=== PATIENT | male | born 1955 | race Caucasian/White ===

== ENCOUNTER 2023-02-27 14:32 | Day surgery (SDC) | payer MEDICARE ==
[2023-02-27] MEDS ORDERED: BUPIVACAINE 0.5% VIAL IJ ONE (14:33)
[2023-02-27] MEDS ORDERED: Depo-Medrol 40 MG/ML IM ONE (14:33)
[2023-02-27] MEDS ORDERED: XYLOCAINE-MPF 1% 5ML SDV IJ ONE (14:33)
--- NOTE | 2023-02-27 17:16 | XRAY ---
Indication: Left knee injection. Intraoperative fluoroscopy provided for 15 seconds. Single digital spot image submitted for interpretation demonstrates needle tip projecting over left femur intercondylar notch. Small amount of contrast injected for needle tip placement. Correlate with intraoperative findings/report.
--- NOTE | 2023-02-28 11:52 | XRAY ---
15 seconds of fluoroscopy was used in surgery for a left intra-articular knee injection.
== END 2023-02-27 16:42 | disposition home or self-care (01) ==
LOC: SDC-PAIN 14:32
PROVIDERS: ATTEND Psychiatry & Neurology Pain Medicine
DX: M17.12 Unilateral primary osteoarthritis, left knee (principal)
CPT/HCPCS: 20610; 73560; 77002; J1030; Q9966